=== PATIENT | female | born 1935 | race Caucasian/White ===

== ENCOUNTER 2016-11-25 12:40 | Day surgery (SDC) | payer MEDICARE ==
[~2016-11-25 12:40] MED LIST: CYAN100017 PO; DILT31TA PO; DRON400 PO; HYDR25R RECTAL; LEVO50TA4 PO; PROPOFOL 200 MG/20 ML AMP IV ONE
[2016-11-25] MEDS ORDERED: LACTATED RINGER'S 1000 ML IV PRN (13:30)
[2016-11-25] MEDS ORDERED: POVIDONE IODINE 5% (ANTISEPSIS KIT) 4 APPLICATIONS EACH NARE PRN (13:30)
[2016-11-25] MEDS ORDERED: INSULIN HUMAN REGULAR 1,000 UNITS/10 ML VIAL SQ PRN (13:30)
[2016-11-25] MEDS ORDERED: CHLORHEXIDINE GLUCONATE 2 % 1 PACK (2 CLOTHS) TOPICAL PRN (13:30)
[2016-11-25] MEDS ORDERED: METOPROLOL TARTRATE 25 MG TAB PO PRN (13:30)
[2016-11-25] MEDS ORDERED: SODIUM CHLORID 0.9% 500 ML IV PRN (13:30)
--- NOTE | 2016-11-26 19:26 | EKG ---
Date Performed: 11/25/2016 Time Performed: 14:43:22 PTAGE: 81 years EKG: Sinus rhythm with PAC(s) with 1st degree A-V block Prolonged QT interval Left axis deviation Lateral ST-T changes are nonspecific Abnormal ECG PREVIOUS TRACING : 11/25/2016 13.06 Compared to the previous tracing A flutter no longer presen t DOCTOR: Dong Huerta Interpretating Date/Time 11/26/2016 19:25:13
--- NOTE | 2016-11-26 19:29 | EKG ---
Date Performed: 11/25/2016 Time Performed: 13:06:10 PTAGE: 81 years EKG: Atrial flutter with PVC(s) or aberrant ventricular conduction Left axis deviation Possible septal infarct - age undetermined Inferior/lateral ST-T changes are nonspecific Abnormal ECG PREVIOUS TRACING : 11/08/2015 03.57 Compared to the previous tracing a flutter now present DOCTOR: Dong Huerta Interpretating Date/Time 11/26/2016 19:28:44
--- NOTE | 2016-11-27 22:29 | MR ---
cc: DONG HUERTA DATE November 25, 2016 INDICATION Atrial flutter / fibrillation. PROCEDURE PERFORMED DC cardioversion of atrial flutter. PROCEDURE DETAILS After the patient was sedated by anesthesia a 50 joule biphasic was delivered and converted the patient into sinus rhythm. The patient remained stable and was discharged in stable condition. DIAGNOSES Successful cardioversion of atrial flutter / fibrillation. DISPOSITION Ms. Noble will continue her current medical program including anticoagulation. I will see her back for followup in our office after discharge. Dong Huerta MD OStephanie/KK /2:11 PM /10:24 PM MTDKate
== END 2016-11-25 14:54 | disposition home or self-care (01) ==
LOC: HDOC 12:40 → HDIC 12:41 → HDOC 14:54
PROVIDERS: ATTEND Internal Medicine Interventional Cardiology
DX: I48.92 Unspecified atrial flutter (principal); I48.0 Paroxysmal atrial fibrillation
CPT/HCPCS: 92960; 93005

== ENCOUNTER 2018-01-22 11:02 | Day surgery (SDC) | payer MEDICARE ==
[~2018-01-22 11:02] MED LIST changes: -PROPOFOL 200 MG/20 ML AMP IV ONE
[2018-01-22] MEDS ORDERED: LACTATED RINGER'S 1000 ML IV PRN (11:30)
[2018-01-22] MEDS ORDERED: SODIUM CHLORID 0.9% 500 ML IV PRN (11:30)
[2018-01-22] MEDS ORDERED: METOPROLOL TARTRATE 25 MG TAB PO PRN (11:30)
[2018-01-22] MEDS ORDERED: POVIDONE IODINE 5% (ANTISEPSIS KIT) 4 APPLICATIONS EACH NARE PRN (11:30)
[2018-01-22] MEDS ORDERED: CHLORHEXIDINE GLUCONATE 2 % 1 PACK (2 CLOTHS) TOPICAL PRN (11:30)
[2018-01-22] MEDS ORDERED: PROPOFOL 200 MG/20 ML AMP IV ONE (12:00)
--- NOTE | 2018-01-22 14:11 | MR ---
cc: Dong Huerta MD DATE: 01/22/2018 INDICATIONS: Atrial fibrillation/atrial flutter. PROCEDURE PERFORMED: DC cardioversion. DESCRIPTION OF PROCEDURE: After the patient was sedated by Anesthesia, a 50 joule biphasic shock was delivered and converted the patient into sinus rhythm. The patient remained stable and was discharged home in stable condition. DIAGNOSIS: Successful cardioversion of atrial fibrillation. DISPOSITION: Ms. Noble will continue her current medical program including anticoagulation. I will see her back for followup in our office after discharge. Dong Huerta MD OQ/SB , 02:01 PM , 02:10 PM MTDD
--- NOTE | 2018-01-22 15:18 | EKG ---
Date Performed: 01/22/2018 Time Performed: 11:21:42 PTAGE: 83 years EKG: Probable atrial flutter with controlled response Left axis deviation Possible anterior infa rct - age undetermined Inferior/lateral ST-T changes are nonspecific Abnormal ECG Compared to prior e lectrocardiogram, Probable atrial flutter has replaced Sinus rhythm . DOCTOR: Sanjeev Leyva Interpretating Date/Time 01/22/2018 15:17:07
--- NOTE | 2018-01-22 21:30 | EKG ---
Date Performed: 01/22/2018 Time Performed: 14:43:22 PTAGE: 83 years EKG: Sinus rhythm . With first degree A-V block Left axis deviation Poor R wave progression - probable normal variant A nterolateral T wave changes are nonspecific Borderline ECG Compared to prior electrocardiogram, Sinus rhythm has replaced atrial fibrillation. DOCTOR: Sanjeev Leyva Interpretating Date/Time 01/22/2018 21:29:17
== END 2018-01-22 15:05 | disposition home or self-care (01) ==
LOC: HDOC 11:02 → HDIC 11:03 → HDOC 15:05
PROVIDERS: ATTEND Internal Medicine Interventional Cardiology
DX: I48.0 Paroxysmal atrial fibrillation (principal); I48.92 Unspecified atrial flutter
CPT/HCPCS: 92960; 93005